=== PATIENT | male | born 1940 | race Caucasian/White ===

== ENCOUNTER 2016-03-21 09:33 | Outpatient (CLI) | payer MEDICARE, BC ==
[2016-03-21 09:50] LABS: #Basophils 0.1 thou/uL (0.0-0.2); #Eosinphils 0.3 thou/uL (0.0-0.7); #Lymphocytes 1.5 thou/uL (1.20-3.40); #Monocytes 1.3 thou/uL (0.11-0.59); #Neutrophils 5.5 thou/uL (1.40-6.50); %Basophils 1.2 % (0.0-1.0); %Eosinophils 3.2 % (0.0-10.0); %Lymphocytes 17.7 % (21.0-51.0); %Monocytes 14.6 % (0.0-10.0); %Neutrophils 63.3 % (42.0-75.0); Mean Corpuscular Hemoglobin 28.8 pg (27.0-31.0); Mean Corpuscular Volume 87.4 fl (80.0-94.0); Mean Platelet Volume 6.6 fL (7.4-10.4); Platelet Count 139 thou/uL (130-400); RBC Distribution Width 13.9 % (11.5-14.5); Red Blood Cell (RBC) Count 5.19 mill/uL (4.70-6.10); White Blood Cell (WBC) Count 8.7 thou/uL (4.8-10.8)
== END 2016-03-21 09:34 | disposition home or self-care (01) ==
LOC: MADLABBHPM 09:33
PROVIDERS: ATTEND Family Medicine
DX: Z13.9 Encounter for screening, unspecified (principal)
CPT/HCPCS: 36415; 82728; 83540; 85025

== ENCOUNTER 2016-06-28 08:02 | Outpatient (CLI) | payer MEDICARE, BC ==
[2016-06-28 08:35] LABS: Hemoglobin A1c 5.5 % (4.0-6.0)
[2016-06-28 08:46] LABS: ALT (SGPT) 20 U/L (8-55); AST (SGOT) 20 U/L (5-34); Albumin 4.2 g/dL (3.4-4.8); Alkaline Phosphatase 84 U/L (40-150); Anion Gap 13 mmol/L (10-20); BUN (Urea Nitrogen) 15 mg/dL (8.4-25.7); Bilirubin, Total 1.3 mg/dL (0.2-1.2); Calc. Creatinine Clearance 0 mL/min (70-130); Calcium 8.9 mg/dL (7.8-10.44); Carbon Dioxide 25 mmol/L (23-31); Cardiac Risk 6.7 (Less than 4.5); Chloride 105 mmol/L (98-107); Cholesterol 175 mg/dl (< 200 Desired); Estimated GFR-MDRD 58; Globulin 2.6 g/dL (2.4-3.5); Glucose 128 mg/dL (83-110); HDL Cholesterol 26 mg/dL (>60 Neg Risk); LDL Cholesterol, Calculated 97 mg/dL; Potassium 4.1 mmol/L (3.5-5.1); Protein, Total 6.8 g/dL (5.8-8.1); Sodium 139 mmol/L (136-145); Triglycerides 259 mg/dL (Less than 150)
[2016-06-28 10:01] LABS: Band 1 % (5-11); Eosinophils 3 % (0-10); Hemoglobin 15.1 g/dL (14.0-18.0); Lymphocytes 14 % (21-51); MDiff Complete? YES; Mean Corpuscular HGB CONC 33.6 g/dL (32.0-36.0); Mean Corpuscular Hemoglobin 29.2 pg (27.0-31.0); Mean Corpuscular Volume 86.9 fl (80.0-94.0); Mean Platelet Volume 5.8 fL (7.4-10.4); Monocytes 12 % (0-10); Neutrophil 70 % (42-75); PLT Morphology Comment Appears Decreased; Platelet Count 129 thou/uL (130-400); RBC Distribution Width 13.8 % (11.5-14.5); RBC Morphology Normal; Red Blood Cell (RBC) Count 5.17 mill/uL (4.70-6.10); White Blood Cell (WBC) Count 7.4 thou/uL (4.8-10.8)
== END 2016-06-28 08:03 ==
LOC: MADLABBHPM 08:02
PROVIDERS: ATTEND Family Medicine
DX: D69.6 Thrombocytopenia, unspecified (principal); R73.03 Prediabetes
CPT/HCPCS: 36415; 80053; 80061; 83036; 85025

== ENCOUNTER 2016-09-27 07:14 | Outpatient (CLI) | payer MEDICARE, BC ==
[2016-09-27 07:51] LABS: ALT (SGPT) 20 U/L (8-55); AST (SGOT) 17 U/L (5-34); Albumin 4.2 g/dL (3.4-4.8); Alkaline Phosphatase 79 U/L (40-150); Anion Gap 13 mmol/L (10-20); BUN (Urea Nitrogen) 19 mg/dL (8.4-25.7); Bilirubin, Total 0.7 mg/dL (0.2-1.2); Calc. Creatinine Clearance 0 mL/min (70-130); Calcium 8.9 mg/dL (7.8-10.44); Carbon Dioxide 25 mmol/L (23-31); Cardiac Risk 7.1 (Less than 4.5); Chloride 105 mmol/L (98-107); Cholesterol 184 mg/dl (< 200 Desired); Estimated GFR-MDRD 53; Globulin 2.9 g/dL (2.4-3.5); Glucose 130 mg/dL (83-110); HDL Cholesterol 26 mg/dL (>60 Neg Risk); LDL Cholesterol, Calculated 99 mg/dL; Potassium 4.1 mmol/L (3.5-5.1); Protein, Total 7.1 g/dL (5.8-8.1); Sodium 139 mmol/L (136-145); Triglycerides 295 mg/dL (Less than 150)
[2016-09-27 08:23] LABS: #Basophils 0.1 thou/uL (0.0-0.2); #Eosinphils 0.2 thou/uL (0.0-0.7); #Lymphocytes 1.4 thou/uL (1.20-3.40); #Monocytes 0.9 thou/uL (0.11-0.59); #Neutrophils 4.5 thou/uL (1.40-6.50); %Basophils 0.9 % (0.0-1.0); %Eosinophils 2.5 % (0.0-10.0); %Lymphocytes 19.5 % (21.0-51.0); %Monocytes 12.2 % (0.0-10.0); Hemoglobin 14.3 g/dL (14.0-18.0); Large Platelets SLIGHT; MDiff Complete? YES; Mean Corpuscular HGB CONC 32.3 g/dL (32.0-36.0); Mean Corpuscular Hemoglobin 28.6 pg (27.0-31.0); Mean Corpuscular Volume 88.4 fl (80.0-94.0); Mean Platelet Volume 7.1 fL (7.4-10.4); PLT Morphology Comment Appears Decreased; Platelet Count 120 thou/uL (130-400); RBC Distribution Width 14.8 % (11.5-14.5); Red Blood Cell (RBC) Count 4.99 mill/uL (4.70-6.10)
== END 2016-09-27 07:15 | disposition home or self-care (01) ==
LOC: MADLABBHPM 07:14
PROVIDERS: ATTEND Family Medicine
DX: D64.9 Anemia, unspecified (principal); I10 Essential (primary) hypertension
CPT/HCPCS: 36415; 80053; 80061; 85025

== ENCOUNTER 2016-09-30 10:54 | Outpatient (CLI) | payer MEDICARE, BC ==
[2016-09-30 12:16] LABS: Prothrombin Time 13.2 SEC (12.0-14.7)
[2016-09-30 12:17] LABS: PTT 28.5 SEC (22.9-36.1)
[2016-09-30 12:23] LABS: Clarity Clear (Clear)
[2016-09-30 12:24] LABS: Bilirubin Negative (Negative); Blood, Urine Small (Negative); Glucose, Urine (Dipstick) Negative (Negative); Leukocyte Negative (Negative); Nitrite Negative (Negative); Protein, Urine (Dipstick) 30 mg/dL (Neg-Trace); Urobilinogen 0.2 mg/dL (0.2-1.0)
[2016-09-30 12:27] LABS: Bacteria/HPF Rare-Few HPF (None Seen); RBC/HPF 0-3 HPF (0-3); Squamous Epithelial 0-3 HPF (0-3); WBC/HPF 0-3 HPF (0-3)
--- NOTE | 2016-09-30 16:30 | RAD ---
PA AND LATERAL CHEST X-RAY 09/30/2016 HISTORY: Preoperative evaluation. COMPARISON: 02/28/2012 FINDINGS: The cardiac silhouette and pulmonary vasculature are within normal limits. The lungs remain clear. There are vascular calcifications in the thoracic aorta. There are degenerative changes in the spi ne. There has been no interval change from the prior study. IMPRESSION: No acute cardiopulmonary process. POS: [facility]
== END 2016-09-30 10:55 | disposition home or self-care (01) ==
LOC: MADLABBHPM 10:54
PROVIDERS: ATTEND Family Medicine
DX: Z01.818 Encounter for other preprocedural examination (principal)
CPT/HCPCS: 36415; 71020; 81001; 85610; 85730; 87086

== ENCOUNTER 2017-01-28 22:14 | Emergency (ER) | payer MEDICARE, BC, OTHER ==
[2017-01-28] MEDS ORDERED: HYDROcodone/Acetaminophen 5/325 mg Tablet ONE (23:09)
[2017-01-28] MEDS ORDERED: Amoxicillin/Potassium Clav 875 MG TAB ONE (23:10)
[2017-01-28] MEDS ORDERED: Benzonatate 100 MG CAP ONE (23:10)
[2017-01-28] MEDS ORDERED: Dexamethasone 4 MG TAB ONE (23:10)
--- NOTE | 2017-01-28 23:23 | RAD ---
TWO VIEWS CHEST: 01/28/17 PROVIDED CLINICAL HISTORY: Cough. FINDINGS: Comparison 09/30/16. Cardiac and mediastinal silhouette is within normal limits. No focal consolidation, pleural fluid or pneumothorax apparent. IMPRESSION: No evidence for an acute cardiopulmonary process. POS: [facility]
== END 2017-01-28 23:30 | disposition home or self-care (01) ==
LOC: MADERS 22:14
DX: J40 Bronchitis, not specified as acute or chronic (principal); I10 Essential (primary) hypertension; F17.210 Nicotine dependence, cigarettes, uncomplicated; Z79.891 Long term (current) use of opiate analgesic; Z79.82 Long term (current) use of aspirin; Z79.899 Other long term (current) drug therapy
CPT/HCPCS: 71020; J8540

== ENCOUNTER 2017-10-07 08:48 | Outpatient (CLI) | payer MEDICARE, BC, OTHER ==
--- NOTE | 2017-10-07 10:52 | ULT ---
ULTRASOUND ABDOMEN: Date: 10/07/17 HISTORY: Abdominal pain. COMPARISON: None. FINDINGS: Real-time Shukla scale and color evaluation of the abdomen performed. Visualized portions of the aorta and IVC are unremarkable. Visualized portions of pancreas unremarkable. Hepatic echotexture appears m ildly increased. Common bile duct measures 2.0 mm and is normal. The right kidney measures 10.8 x 4.5 x 5.0 cm, without mass, hydronephrosis, or abnormal calcificatio ns. The left kidney measures 10.0 x 5.0 x 4.6 cm, without mass, hydronephrosis, or abnormal calcification s. Spleen measures 11.9 cm in length. No gallbladder is evaluated on this examination. IMPRESSION: 1. Unremarkable exam. 2. Prior cholecystectomy. POS: [facility]
== END 2017-10-07 08:49 | disposition home or self-care (01) ==
LOC: MADRAD 08:48
PROVIDERS: ATTEND Family Medicine
DX: Z87.891 Personal history of nicotine dependence (principal); Z90.49 Acquired absence of other specified parts of digestive tract
CPT/HCPCS: 76700

== ENCOUNTER 2018-08-29 08:23 | Emergency (ER) | payer MEDICARE, BC, OTHER ==
--- NOTE | 2018-08-29 09:00 | RAD ---
EXAM: 3 views of the right shoulder HISTORY: Shoulder pain COMPARISON: 12/01/2013 FINDINGS: There is no evidence of acute fracture or dislocation. No degenerative changes are present. No soft tissue swelling is seen. The visualized thorax is unremarkable. IMPRESSION: No evidence of acute osseous abnormality.
== END 2018-08-29 09:45 | disposition home or self-care (01) ==
LOC: MADERS 08:23
DX: S43.401A Unspecified sprain of right shoulder joint, initial encounter (principal); I10 Essential (primary) hypertension; F17.210 Nicotine dependence, cigarettes, uncomplicated; Z79.899 Other long term (current) drug therapy; X58.XXXA Exposure to other specified factors, initial encounter

== ENCOUNTER 2018-11-10 09:11 | Outpatient (CLI) | payer MEDICARE, BC, OTHER ==
[2018-11-10 09:48] LABS: #Basophils 0.1 thou/uL (0.0-0.2); #Eosinphils 0.1 thou/uL (0.0-0.7); #Lymphocytes 1.1 thou/uL (1.20-3.40); #Monocytes 0.9 thou/uL (0.11-0.59); #Neutrophils 3.7 thou/uL (1.40-6.50); %Basophils 1.9 % (0.0-1.0); %Eosinophils 1.9 % (0.0-10.0); %Monocytes 14.5 % (0.0-10.0); %Neutrophils 62.8 % (42.0-75.0); Hemoglobin 13.3 g/dL (14.0-18.0); Mean Corpuscular Hemoglobin 27.4 pg (27.0-31.0); Mean Corpuscular Volume 85.7 fL (78.0-98.0); Mean Platelet Volume 5.8 fL (7.4-10.4); Platelet Count 151 thou/uL (130-400); RBC Distribution Width 14.5 % (11.5-14.5); Red Blood Cell (RBC) Count 4.86 mill/uL (4.70-6.10); White Blood Cell (WBC) Count 5.9 thou/uL (4.8-10.8)
[2018-11-10 10:50] LABS: Bilirubin Negative (Negative); Blood, Urine Large (Negative); Glucose, Urine (Dipstick) Negative (Negative); Leukocyte Negative (Negative); Nitrite Negative (Negative); Protein, Urine (Dipstick) 100 mg/dL (Neg-Trace); Urobilinogen 0.2 mg/dL (Less than 2)
[2018-11-10 10:51] LABS: Clarity Hazy (Clear); RBC/HPF Greater than 50 HPF (0-3)
[2018-11-10 10:52] LABS: Bacteria/HPF Rare-Few HPF (None Seen); Squamous Epithelial 0-3 HPF (0-3); WBC/HPF 0-3 HPF (0-3)
[2018-11-10 11:00] LABS: ALT (SGPT) 42 U/L (8-55); AST (SGOT) 26 U/L (5-34); Albumin 4.2 g/dL (3.4-4.8); Alkaline Phosphatase 86 U/L (40-110); Anion Gap 16 mmol/L (10-20); BUN (Urea Nitrogen) 23 mg/dL (8.4-25.7); Bilirubin, Total 0.7 mg/dL (0.2-1.2); Calc. Creatinine Clearance 0 mL/min (70-130); Calcium 8.9 mg/dL (7.8-10.44); Carbon Dioxide 26 mmol/L (23-31); Chloride 106 mmol/L (98-107); Estimated GFR-MDRD 53; Globulin 2.9 g/dL (2.4-3.5); Glucose 92 mg/dL (83-110); Potassium 4.5 mmol/L (3.5-5.1); Protein, Total 7.1 g/dL (5.8-8.1); Sodium 143 mmol/L (136-145)
== END 2018-11-10 09:12 | disposition home or self-care (01) ==
LOC: MADLABBHPM 09:11
PROVIDERS: ATTEND Family Medicine
DX: D64.9 Anemia, unspecified (principal); R19.7 Diarrhea, unspecified; R35.0 Frequency of micturition
CPT/HCPCS: 36415; 80053; 81001; 85025; 87086

== ENCOUNTER 2019-10-25 05:46 | Emergency (ER) | payer MEDICARE, BC, OTHER ==
[2019-10-25 06:08] LABS: Bilirubin Negative (Negative); Blood, Urine Large (Negative); Clarity Slightly Cloudy (Clear); Glucose, Urine (Dipstick) Negative (Negative); Ketone, Urine Negative (Negative); Leukocyte Negative (Negative); Nitrite Negative (Negative); Protein, Urine (Dipstick) 100 mg/dL (Neg-Trace); Urobilinogen 0.2 mg/dL (Less than 2); pH, Urine 5.5 (5.0-9.0)
[2019-10-25 06:11] LABS: RBC/HPF Greater than 50 HPF (0-3); Squamous Epithelial 0-3 HPF (0-3); WBC/HPF 0-3 HPF (0-3)
[2019-10-25 06:12] LABS: Bacteria/HPF Rare-Few HPF (None Seen)
[2019-10-25] MEDS ORDERED: Sodium Chloride 0.9% 1,000 ML ONE (06:19)
[2019-10-25] MEDS ORDERED: Ondansetron PF 4 MG/2 ML Vial ONE (06:20)
[2019-10-25] MEDS ORDERED: Ketorolac Tromethamine 30 MG/ML VIAL ONE ×2 (06:20→06:56)
[2019-10-25] MEDS ORDERED: Tamsulosin HCl 0.4 MG CAP ONE (06:22)
[2019-10-25 06:31] LABS: #Eosinphils 0.1 thou/uL (0.0-0.7); #Lymphocytes 1.2 thou/uL (1.20-3.40); #Monocytes 0.8 thou/uL (0.11-0.59); #Neutrophils 5.6 thou/uL (1.40-6.50); %Basophils 0.5 % (0.0-1.0); %Eosinophils 1.2 % (0.0-10.0); %Lymphocytes 14.9 % (21.0-51.0); %Monocytes 10.7 % (0.0-10.0); %Neutrophils 72.8 % (42.0-75.0); Hemoglobin 14.5 g/dL (14.0-18.0); Mean Corpuscular HGB CONC 32.6 g/dL (32.0-36.0); Mean Corpuscular Hemoglobin 28.1 pg (27.0-31.0); Mean Corpuscular Volume 86.2 fL (78.0-98.0); Mean Platelet Volume 6.6 fL (7.4-10.4); Platelet Count 160 thou/uL (130-400); Red Blood Cell (RBC) Count 5.15 mill/uL (4.70-6.10); White Blood Cell (WBC) Count 7.7 thou/uL (4.8-10.8)
[2019-10-25 06:38] LABS: ALT (SGPT) 10 U/L (8-55); AST (SGOT) 13 U/L (5-34); Albumin 4.5 g/dL (3.4-4.8); Alkaline Phosphatase 74 U/L (40-110); Anion Gap 14 mmol/L (10-20); BUN (Urea Nitrogen) 19 mg/dL (8.4-25.7); Bilirubin, Total 0.8 mg/dL (0.2-1.2); Calc. Creatinine Clearance 0 mL/min (70-130); Calcium 8.6 mg/dL (7.8-10.44); Carbon Dioxide 20 mmol/L (23-31); Chloride 109 mmol/L (98-107); Estimated GFR-MDRD 52; Globulin 2.8 g/dL (2.4-3.5); Glucose 160 mg/dL (83-110); Potassium 3.8 mmol/L (3.5-5.1); Protein, Total 7.3 g/dL (5.8-8.1); Sodium 139 mmol/L (136-145)
--- NOTE | 2019-10-25 07:54 | CT ---
CT OF THE ABDOMEN AND PELVIS WITHOUT CONTRAST: INDICATION: Left flank pain with concern for possible stone. COMPARISON: Prior CT stone protocol dated 11/13/2018 and CTA aortic dissection protocol dated 12/22/2014. FINDINGS: There is mild subsegmental atelectasis in the left lower lobe. Unopacified liver, pancreas, and adrenal glands appear within normal limits. The gallbladder is surg ically absent. The spleen is normal-appearing. There are bilateral cysts that have been stable since the prior examinations. The largest measures 1 .8 cm superior pole left kidney. There is an exophytic slightly hyperdense lesion off the posterior margin of the left mid kidney measuring 1.4 cm that was demonstrated as being a cyst on the prior exa minations. This was also seen on a chest, abdomen, and pelvis CT dated 09/17/2013. The lesion appears slightly more hyperdense on today's examination possibly related to increased proteinaceous debris. There is a 1 cm cyst involving the inferior pole of the right kidney which is stable. There is a 3.4 mm stone at the right UPJ without hydronephrosis. There is a 1-2 mm stone involving t he superior stone involving the superior pole of the left kidney. N definite left ureteral calculus is evident. The bladder is partially decompressed. The prostate is mildly enlarged. There is a mild amount of retained stool in the colon. The appendix is not definite seen. The small bowel is normal appearing. There are moderate calcifications involving the abdominopelvic vasculature. No definite acute osseous abnormality is evident. There is scattered degenerative and osteoarthritic change. IMPRESSION: 1. A 3.4 mm right ureteropelvic junction stone without hydronephrosis. 2. Left nephrolithiasis. 3. No hydronephrosis. 4. Bilateral renal cysts. 5. Other chronic findings as above. POS: [facility]
[2019-10-25] MEDS ORDERED: Morphine 4 MG/ML VIAL ONE (07:56)
== END 2019-10-25 08:35 | disposition home or self-care (01) ==
LOC: MADERS 05:46
DX: N20.2 Calculus of kidney with calculus of ureter (principal); I10 Essential (primary) hypertension; F17.210 Nicotine dependence, cigarettes, uncomplicated; Z87.442 Personal history of urinary calculi; Z79.899 Other long term (current) drug therapy
CPT/HCPCS: 74176; 80053; 81003; 81015; 85025; 96361; 96374; 96375; J1885; J2270; J2405; J7050

== ENCOUNTER 2020-08-07 09:48 | Emergency (ER) | payer MEDICARE, BC, OTHER ==
[2020-08-07 10:39] LABS: Hemoglobin 13.9 g/dL (14.0-18.0); Lymphocytes 13 % (21-51); MDiff Complete? YES; Mean Corpuscular HGB CONC 31.8 g/dL (32.0-36.0); Mean Corpuscular Hemoglobin 28.7 pg (27.0-31.0); Mean Corpuscular Volume 90.1 fL (78.0-98.0); Mean Platelet Volume 7.9 fL (7.4-10.4); Monocytes 8 % (0-10); Neutrophil 79 % (42-75); Platelet Count 153 thou/uL (130-400); Platelet Morphology Comment Appears Adequate; RBC Distribution Width 14.3 % (11.5-14.5); RBC Morphology Normal; Red Blood Cell (RBC) Count 4.85 mill/uL (4.70-6.10); White Blood Cell (WBC) Count 8.3 thou/uL (4.8-10.8)
[2020-08-07 10:49] LABS: ALT (SGPT) 9 U/L (8-55); AST (SGOT) 15 U/L (5-34); Albumin 4.4 g/dL (3.4-4.8); Alkaline Phosphatase 84 U/L (40-110); Anion Gap 13 mmol/L (10-20); BUN (Urea Nitrogen) 24 mg/dL (8.4-25.7); Bilirubin, Total 0.8 mg/dL (0.2-1.2); Calc. Creatinine Clearance 0 mL/min (70-130); Calcium 9.1 mg/dL (7.8-10.44); Carbon Dioxide 23 mmol/L (23-31); Chloride 108 mmol/L (98-107); Globulin 2.8 g/dL (2.4-3.5); Glucose 109 mg/dL (83-110); Potassium 4.8 mmol/L (3.5-5.1); Protein, Total 7.2 g/dL (5.8-8.1); Sodium 139 mmol/L (136-145)
[2020-08-07 11:14] LABS: Bilirubin Negative (Negative); Blood, Urine Trace (Negative); Clarity Clear (Clear); Glucose, Urine (Dipstick) Negative (Negative); Ketone, Urine Negative (Negative); Leukocyte Negative (Negative); Nitrite Negative (Negative); Protein, Urine (Dipstick) Negative (Neg-Trace); Urobilinogen 0.2 mg/dL (Less than 2); pH, Urine 5.5 (5.0-9.0)
[2020-08-07 11:15] LABS: Bacteria/HPF Rare-Few HPF (None Seen); RBC/HPF 0-3 HPF (0-3); Squamous Epithelial 0-3 HPF (0-3); WBC/HPF 0-3 HPF (0-3)
== END 2020-08-07 11:40 | disposition home or self-care (01) ==
LOC: MADERS 09:48
DX: I10 Essential (primary) hypertension (principal); R42 Dizziness and giddiness; R00.0 Tachycardia, unspecified; F17.210 Nicotine dependence, cigarettes, uncomplicated; Z87.442 Personal history of urinary calculi; Z79.899 Other long term (current) drug therapy; Z79.82 Long term (current) use of aspirin
CPT/HCPCS: 36415; 80053; 81015; 84484; 85025; 93005

== ENCOUNTER 2020-08-25 13:40 | Inpatient (IN) | payer MEDICARE, BC, OTHER ==
[2020-08-25] MEDS ORDERED: HYDROcodone/Acetaminophen 5/325 mg Tablet PO PRN (18:19)
[2020-08-25] MEDS: Aspirin 81 mg Enteric Coated Tablet PO SCH (20:31)
[2020-08-25] MEDS: hydrALAZINE 10 MG TAB PO SCH (20:32)
[2020-08-25] MEDS: Losartan Potassium 50 MG TAB PO SCH (20:32)
[2020-08-25] MEDS: METHAZOLAMIDE 50 MG PO SCH (20:33)
[2020-08-25] MEDS: HYDROcodone/Acetaminophen 5/325 mg Tablet PO PRN (20:39)
[2020-08-25] MEDS: SODIUM CHLORIDE 5% EA EYE SCH (20:39)
[2020-08-25] MEDS: [UNRECOGNIZED DRUG - OTHER] EA EYE SCH (20:39)
[2020-08-25] MEDS: POTASSIUM CITRATE 15 MEQ PO SCH (20:48)
[2020-08-25] MEDS ORDERED: METHAZOLAMIDE 50 MG PO SCH (21:00)
[2020-08-25] MEDS ORDERED: [UNRECOGNIZED DRUG - OTHER] EA EYE SCH (21:00)
[2020-08-25] MEDS ORDERED: SODIUM CHLORIDE 5% EA EYE SCH (21:00)
[2020-08-26] MEDS: Enoxaparin Sodium 40 MG/0.4 ML SYRINGE SC SCH (08:12)
[2020-08-26] MEDS: Aspirin 81 mg Enteric Coated Tablet PO SCH ×2 (08:12→20:50)
[2020-08-26] MEDS: METHAZOLAMIDE 50 MG PO SCH ×2 (08:12→20:52)
[2020-08-26] MEDS: hydrALAZINE 10 MG TAB PO SCH ×2 (08:12→20:51)
[2020-08-26] MEDS: Atenolol 25 MG TAB PO SCH (08:12)
[2020-08-26] MEDS: [UNRECOGNIZED DRUG - OTHER] EA EYE SCH ×3 (08:13→21:02)
[2020-08-26] MEDS: SODIUM CHLORIDE 5% EA EYE SCH ×3 (08:13→21:02)
[2020-08-26] MEDS: POTASSIUM CITRATE 15 MEQ PO SCH ×2 (08:13→21:01)
[2020-08-26] MEDS: Polyethylene Glycol 3350 17 GM Packet PER TUBE SCH (08:14)
[2020-08-26] MEDS: HYDROcodone/Acetaminophen 5/325 mg Tablet PO PRN ×3 (08:16→20:55)
[2020-08-26] MEDS: Losartan Potassium 50 MG TAB PO SCH (20:51)
[2020-08-27] MEDS: HYDROcodone/Acetaminophen 5/325 mg Tablet PO PRN ×4 (05:09→21:08)
[2020-08-27] MEDS: Acetaminophen 325 MG TAB PO PRN (08:08)
[2020-08-27] MEDS: Atenolol 25 MG TAB PO SCH (08:09)
[2020-08-27] MEDS: Polyethylene Glycol 3350 17 GM Packet PER TUBE SCH (08:09)
[2020-08-27] MEDS: Enoxaparin Sodium 40 MG/0.4 ML SYRINGE SC SCH (08:09)
[2020-08-27] MEDS: Aspirin 81 mg Enteric Coated Tablet PO SCH ×2 (08:09→21:07)
[2020-08-27] MEDS: hydrALAZINE 10 MG TAB PO SCH ×2 (08:09→21:08)
[2020-08-27] MEDS: POTASSIUM CITRATE 15 MEQ PO SCH ×2 (08:10→21:12)
[2020-08-27] MEDS: [UNRECOGNIZED DRUG - OTHER] EA EYE SCH ×3 (08:10→21:13)
[2020-08-27] MEDS: METHAZOLAMIDE 50 MG PO SCH ×2 (08:10→21:10)
[2020-08-27] MEDS: SODIUM CHLORIDE 5% EA EYE SCH ×3 (08:10→21:13)
[2020-08-27] MEDS: Losartan Potassium 50 MG TAB PO SCH (21:08)
[2020-08-28] MEDS: HYDROcodone/Acetaminophen 5/325 mg Tablet PO PRN ×5 (05:18→23:16)
[2020-08-28 05:20] LABS: Hemoglobin 7.8 g/dL (14.0-18.0); Mean Corpuscular HGB CONC 33.9 g/dL (32.0-36.0); Mean Corpuscular Hemoglobin 29.7 pg (27.0-31.0); Mean Corpuscular Volume 87.5 fL (78.0-98.0); Mean Platelet Volume 6.4 fL (7.4-10.4); Platelet Count 195 thou/uL (130-400); RBC Distribution Width 14.3 % (11.5-14.5); Red Blood Cell (RBC) Count 2.63 mill/uL (4.70-6.10); White Blood Cell (WBC) Count 10.3 thou/uL (4.8-10.8)
[2020-08-28 05:37] LABS: Anion Gap 13 mmol/L (10-20); BUN (Urea Nitrogen) 21 mg/dL (8.4-25.7); Calc. Creatinine Clearance 64 mL/min (70-130); Calcium 8.9 mg/dL (7.8-10.44); Carbon Dioxide 22 mmol/L (23-31); Chloride 106 mmol/L (98-107); Glucose 147 mg/dL (83-110); Potassium 4.5 mmol/L (3.5-5.1); Sodium 136 mmol/L (136-145)
[2020-08-28] MEDS: hydrALAZINE 10 MG TAB PO SCH ×2 (08:19→20:20)
[2020-08-28] MEDS: Aspirin 81 mg Enteric Coated Tablet PO SCH ×2 (08:19→20:18)
[2020-08-28] MEDS: Enoxaparin Sodium 40 MG/0.4 ML SYRINGE SC SCH (08:19)
[2020-08-28] MEDS: Polyethylene Glycol 3350 17 GM Packet PER TUBE SCH (08:19)
[2020-08-28] MEDS: Atenolol 25 MG TAB PO SCH (08:19)
[2020-08-28] MEDS: POTASSIUM CITRATE 15 MEQ PO SCH ×2 (08:22→16:40)
[2020-08-28] MEDS: METHAZOLAMIDE 50 MG PO SCH ×2 (08:22→20:21)
[2020-08-28] MEDS: [UNRECOGNIZED DRUG - OTHER] EA EYE SCH ×3 (08:23→20:20)
[2020-08-28] MEDS: SODIUM CHLORIDE 5% EA EYE SCH ×3 (08:23→20:20)
[2020-08-28] MEDS ORDERED: Naproxen 500 MG TAB PO SCH (13:30)
[2020-08-28] MEDS: Naproxen 500 MG TAB PO SCH (20:18)
[2020-08-28] MEDS: Losartan Potassium 50 MG TAB PO SCH (20:18)
[2020-08-29] MEDS: HYDROcodone/Acetaminophen 5/325 mg Tablet PO PRN ×3 (05:12→18:17)
[2020-08-29] MEDS: [UNRECOGNIZED DRUG - OTHER] EA EYE SCH (08:19)
[2020-08-29] MEDS: SODIUM CHLORIDE 5% EA EYE SCH (08:19)
[2020-08-29] MEDS: POTASSIUM CITRATE 15 MEQ PO SCH ×2 (08:19→17:21)
[2020-08-29] MEDS: Aspirin 81 mg Enteric Coated Tablet PO SCH ×2 (08:20→20:22)
[2020-08-29] MEDS: METHAZOLAMIDE 50 MG PO SCH ×2 (08:20→20:22)
[2020-08-29] MEDS: hydrALAZINE 10 MG TAB PO SCH ×2 (08:20→20:22)
[2020-08-29] MEDS: Ferrous Sulfate 325 MG TAB PO SCH (08:21)
[2020-08-29] MEDS: Naproxen 500 MG TAB PO SCH ×2 (08:21→20:20)
[2020-08-29] MEDS: Atenolol 25 MG TAB PO SCH (08:21)
[2020-08-29] MEDS: Polyethylene Glycol 3350 17 GM Packet PER TUBE SCH (08:23)
[2020-08-29] MEDS: Enoxaparin Sodium 40 MG/0.4 ML SYRINGE SC SCH (08:23)
[2020-08-29] MEDS ORDERED: MURO EA EYE SCH (15:00)
[2020-08-29] MEDS ORDERED: OPTH EA EYE SCH (15:00)
[2020-08-29] MEDS: Losartan Potassium 50 MG TAB PO SCH (20:21)
[2020-08-29] MEDS ORDERED: SODIUM CHLORIDE 5% EA EYE SCH ×2 (21:00)
[2020-08-29] MEDS ORDERED: [UNRECOGNIZED DRUG - OTHER] EA EYE SCH ×2 (21:00)
[2020-08-30] MEDS: HYDROcodone/Acetaminophen 5/325 mg Tablet PO PRN ×2 (05:00→13:35)
[2020-08-30] MEDS: POTASSIUM CITRATE 15 MEQ PO SCH ×2 (08:05→17:03)
[2020-08-30] MEDS: Enoxaparin Sodium 40 MG/0.4 ML SYRINGE SC SCH (08:05)
[2020-08-30] MEDS: Aspirin 81 mg Enteric Coated Tablet PO SCH ×2 (08:06→21:19)
[2020-08-30] MEDS: Ferrous Sulfate 325 MG TAB PO SCH (08:06)
[2020-08-30] MEDS: Naproxen 500 MG TAB PO SCH ×2 (08:06→21:20)
[2020-08-30] MEDS: Atenolol 25 MG TAB PO SCH (08:07)
[2020-08-30] MEDS: hydrALAZINE 10 MG TAB PO SCH ×2 (08:07→21:19)
[2020-08-30] MEDS: METHAZOLAMIDE 50 MG PO SCH ×2 (08:07→21:22)
[2020-08-30] MEDS: OPTH EA EYE SCH ×5 (08:08→22:35)
[2020-08-30] MEDS: MURO EA EYE SCH ×5 (08:08→22:35)
[2020-08-30] MEDS: Polyethylene Glycol 3350 17 GM Packet PO SCH (08:08)
[2020-08-30] MEDS: SODIUM CHLORIDE 5% EA EYE SCH ×2 (21:20→21:36)
[2020-08-30] MEDS: [UNRECOGNIZED DRUG - OTHER] EA EYE SCH ×2 (21:20→21:36)
[2020-08-30] MEDS: Losartan Potassium 50 MG TAB PO SCH (21:20)
[2020-08-31] MEDS: HYDROcodone/Acetaminophen 5/325 mg Tablet PO PRN ×2 (07:14→13:13)
[2020-08-31] MEDS: Polyethylene Glycol 3350 17 GM Packet PO SCH (08:06)
[2020-08-31] MEDS: METHAZOLAMIDE 50 MG PO SCH ×2 (08:06→20:15)
[2020-08-31] MEDS: POTASSIUM CITRATE 15 MEQ PO SCH ×2 (08:06→17:09)
[2020-08-31] MEDS: Aspirin 81 mg Enteric Coated Tablet PO SCH ×2 (08:07→20:17)
[2020-08-31] MEDS: Naproxen 500 MG TAB PO SCH ×2 (08:07→20:16)
[2020-08-31] MEDS: Atenolol 25 MG TAB PO SCH (08:07)
[2020-08-31] MEDS: Ferrous Sulfate 325 MG TAB PO SCH (08:07)
[2020-08-31] MEDS: Enoxaparin Sodium 40 MG/0.4 ML SYRINGE SC SCH (08:07)
[2020-08-31] MEDS: hydrALAZINE 10 MG TAB PO SCH ×2 (08:08→20:16)
[2020-08-31] MEDS: MURO EA EYE SCH ×3 (08:09→17:09)
[2020-08-31] MEDS: OPTH EA EYE SCH ×3 (08:09→17:09)
[2020-08-31] MEDS: [UNRECOGNIZED DRUG - OTHER] EA EYE SCH (20:18)
[2020-08-31] MEDS: SODIUM CHLORIDE 5% EA EYE SCH (20:18)
[2020-08-31] MEDS: Losartan Potassium 50 MG TAB PO SCH (20:18)
[2020-09-01] MEDS: HYDROcodone/Acetaminophen 5/325 mg Tablet PO PRN ×2 (06:03→11:02)
[2020-09-01] MEDS: Ferrous Sulfate 325 MG TAB PO SCH (09:13)
[2020-09-01] MEDS: Polyethylene Glycol 3350 17 GM Packet PO SCH (09:13)
[2020-09-01] MEDS: Enoxaparin Sodium 40 MG/0.4 ML SYRINGE SC SCH (09:13)
[2020-09-01] MEDS: Naproxen 500 MG TAB PO SCH ×2 (09:13→20:11)
[2020-09-01] MEDS: Aspirin 81 mg Enteric Coated Tablet PO SCH ×2 (09:14→20:10)
[2020-09-01] MEDS: hydrALAZINE 10 MG TAB PO SCH ×2 (09:14→20:10)
[2020-09-01] MEDS: Atenolol 25 MG TAB PO SCH (09:15)
[2020-09-01] MEDS: POTASSIUM CITRATE 15 MEQ PO SCH ×2 (09:17→19:13)
[2020-09-01] MEDS: METHAZOLAMIDE 50 MG PO SCH ×2 (09:19→20:12)
[2020-09-01] MEDS: MURO EA EYE SCH ×3 (09:26→19:14)
[2020-09-01] MEDS: OPTH EA EYE SCH ×3 (09:26→19:14)
[2020-09-01] MEDS ORDERED: MURO EA EYE SCH (19:15)
[2020-09-01] MEDS ORDERED: POTASSIUM CITRATE 15 MEQ PO SCH (19:15)
[2020-09-01] MEDS ORDERED: OPTH EA EYE SCH (19:15)
[2020-09-01] MEDS: Losartan Potassium 50 MG TAB PO SCH (20:11)
[2020-09-01] MEDS: Acetaminophen 325 MG TAB PO PRN (20:12)
[2020-09-01] MEDS: SODIUM CHLORIDE 5% EA EYE SCH (21:30)
[2020-09-01] MEDS: [UNRECOGNIZED DRUG - OTHER] EA EYE SCH (21:30)
[2020-09-02] MEDS: Acetaminophen 325 MG TAB PO PRN ×2 (01:19→20:16)
[2020-09-02] MEDS: MURO EA EYE SCH ×3 (09:34→17:25)
[2020-09-02] MEDS: POTASSIUM CITRATE 15 MEQ PO SCH ×2 (09:34→17:25)
[2020-09-02] MEDS: OPTH EA EYE SCH ×3 (09:34→17:25)
[2020-09-02] MEDS: METHAZOLAMIDE 50 MG PO SCH ×2 (09:34→20:17)
[2020-09-02] MEDS: Polyethylene Glycol 3350 17 GM Packet PO SCH (09:35)
[2020-09-02] MEDS: Naproxen 500 MG TAB PO SCH ×2 (09:35→20:16)
[2020-09-02] MEDS: Enoxaparin Sodium 40 MG/0.4 ML SYRINGE SC SCH (09:35)
[2020-09-02] MEDS: Aspirin 81 mg Enteric Coated Tablet PO SCH ×2 (09:37→20:15)
[2020-09-02] MEDS: Ferrous Sulfate 325 MG TAB PO SCH (09:37)
[2020-09-02] MEDS: hydrALAZINE 10 MG TAB PO SCH ×2 (09:38→20:15)
[2020-09-02] MEDS: Atenolol 25 MG TAB PO SCH (09:40)
[2020-09-02] MEDS: HYDROcodone/Acetaminophen 5/325 mg Tablet PO PRN (17:21)
[2020-09-02] MEDS: Losartan Potassium 50 MG TAB PO SCH (20:15)
[2020-09-02] MEDS: [UNRECOGNIZED DRUG - OTHER] EA EYE SCH (20:18)
[2020-09-02] MEDS: SODIUM CHLORIDE 5% EA EYE SCH (20:18)
[2020-09-03] MEDS: Polyethylene Glycol 3350 17 GM Packet PO SCH (08:47)
[2020-09-03] MEDS: Enoxaparin Sodium 40 MG/0.4 ML SYRINGE SC SCH (08:47)
[2020-09-03] MEDS: hydrALAZINE 10 MG TAB PO SCH ×2 (08:47→20:45)
[2020-09-03] MEDS: Atenolol 25 MG TAB PO SCH (08:47)
[2020-09-03] MEDS: Ferrous Sulfate 325 MG TAB PO SCH (08:48)
[2020-09-03] MEDS: Naproxen 500 MG TAB PO SCH ×2 (08:48→20:46)
[2020-09-03] MEDS: Aspirin 81 mg Enteric Coated Tablet PO SCH ×2 (08:48→20:45)
[2020-09-03] MEDS: POTASSIUM CITRATE 15 MEQ PO SCH ×2 (08:50→17:20)
[2020-09-03] MEDS: OPTH EA EYE SCH ×3 (08:50→17:19)
[2020-09-03] MEDS: METHAZOLAMIDE 50 MG PO SCH ×2 (08:50→20:49)
[2020-09-03] MEDS: MURO EA EYE SCH ×3 (08:50→17:19)
[2020-09-03] MEDS: Losartan Potassium 50 MG TAB PO SCH (20:46)
[2020-09-03] MEDS: SODIUM CHLORIDE 5% EA EYE SCH (20:51)
[2020-09-03] MEDS: [UNRECOGNIZED DRUG - OTHER] EA EYE SCH (20:51)
[2020-09-04] MEDS: HYDROcodone/Acetaminophen 5/325 mg Tablet PO PRN ×2 (07:08→12:55)
[2020-09-04] MEDS: METHAZOLAMIDE 50 MG PO SCH ×2 (08:17→21:03)
[2020-09-04] MEDS: POTASSIUM CITRATE 15 MEQ PO SCH ×2 (08:18→16:48)
[2020-09-04] MEDS: Polyethylene Glycol 3350 17 GM Packet PO SCH (08:18)
[2020-09-04] MEDS: MURO EA EYE SCH ×3 (08:18→16:48)
[2020-09-04] MEDS: OPTH EA EYE SCH ×3 (08:18→16:48)
[2020-09-04] MEDS: Aspirin 81 mg Enteric Coated Tablet PO SCH ×2 (08:19→20:58)
[2020-09-04] MEDS: hydrALAZINE 10 MG TAB PO SCH (08:19)
[2020-09-04] MEDS: Naproxen 500 MG TAB PO SCH ×2 (08:19→20:58)
[2020-09-04] MEDS: Atenolol 25 MG TAB PO SCH (08:19)
[2020-09-04] MEDS: Enoxaparin Sodium 40 MG/0.4 ML SYRINGE SC SCH (08:20)
[2020-09-04] MEDS: Ferrous Sulfate 325 MG TAB PO SCH (08:20)
[2020-09-04 10:33] VITALS: BMI 27.4
[2020-09-04] MEDS: Losartan Potassium 50 MG TAB PO SCH (20:58)
[2020-09-05] MEDS: HYDROcodone/Acetaminophen 5/325 mg Tablet PO PRN ×2 (06:51→13:41)
[2020-09-05] MEDS: POTASSIUM CITRATE 15 MEQ PO SCH ×2 (07:58→17:21)
[2020-09-05] MEDS: MURO EA EYE SCH (07:58)
[2020-09-05] MEDS: METHAZOLAMIDE 50 MG PO SCH ×2 (07:58→19:59)
[2020-09-05] MEDS: OPTH EA EYE SCH ×2 (07:58→19:59)
[2020-09-05] MEDS: Aspirin 81 mg Enteric Coated Tablet PO SCH ×2 (08:05→20:00)
[2020-09-05] MEDS: Naproxen 500 MG TAB PO SCH ×2 (08:05→20:00)
[2020-09-05] MEDS: Ferrous Sulfate 325 MG TAB PO SCH (08:06)
[2020-09-05] MEDS: Atenolol 25 MG TAB PO SCH (08:06)
[2020-09-05] MEDS: Enoxaparin Sodium 40 MG/0.4 ML SYRINGE SC SCH (08:09)
[2020-09-05] MEDS: Polyethylene Glycol 3350 17 GM Packet PO SCH (09:32)
[2020-09-05] MEDS: Sodium Chloride 5% Opth 15 ML BOT EA EYE SCH ×2 (13:39→17:25)
[2020-09-05] MEDS: SODIUM CHLORIDE 5% EA EYE SCH (19:59)
[2020-09-05] MEDS: Losartan Potassium 50 MG TAB PO SCH (20:00)
[2020-09-06] MEDS: HYDROcodone/Acetaminophen 5/325 mg Tablet PO PRN ×3 (00:46→20:17)
[2020-09-06] MEDS: Enoxaparin Sodium 40 MG/0.4 ML SYRINGE SC SCH (09:14)
[2020-09-06] MEDS: Atenolol 25 MG TAB PO SCH (09:16)
[2020-09-06] MEDS: Naproxen 500 MG TAB PO SCH ×2 (09:17→20:17)
[2020-09-06] MEDS: Aspirin 81 mg Enteric Coated Tablet PO SCH ×2 (09:17→20:18)
[2020-09-06] MEDS: POTASSIUM CITRATE 15 MEQ PO SCH ×2 (09:18→17:25)
[2020-09-06] MEDS: Ferrous Sulfate 325 MG TAB PO SCH (09:18)
[2020-09-06] MEDS: METHAZOLAMIDE 50 MG PO SCH ×2 (09:19→20:14)
[2020-09-06] MEDS: Polyethylene Glycol 3350 17 GM Packet PO SCH (09:19)
[2020-09-06] MEDS: Sodium Chloride 5% Opth 15 ML BOT EA EYE SCH ×4 (09:20→17:26)
[2020-09-06] MEDS: SODIUM CHLORIDE 5% EA EYE SCH (20:15)
[2020-09-06] MEDS: OPTH EA EYE SCH (20:15)
[2020-09-06] MEDS: Losartan Potassium 50 MG TAB PO SCH (20:19)
[2020-09-07] MEDS: HYDROcodone/Acetaminophen 5/325 mg Tablet PO PRN (06:00)
[2020-09-07] MEDS: Enoxaparin Sodium 40 MG/0.4 ML SYRINGE SC SCH (09:00)
[2020-09-07] MEDS: Polyethylene Glycol 3350 17 GM Packet PO SCH (09:00)
[2020-09-07] MEDS: Ferrous Sulfate 325 MG TAB PO SCH (09:01)
[2020-09-07] MEDS: Naproxen 500 MG TAB PO SCH ×2 (09:02→20:22)
[2020-09-07] MEDS: Aspirin 81 mg Enteric Coated Tablet PO SCH ×2 (09:02→20:21)
[2020-09-07] MEDS: Atenolol 25 MG TAB PO SCH (09:03)
[2020-09-07] MEDS: POTASSIUM CITRATE 15 MEQ PO SCH ×2 (09:05→17:49)
[2020-09-07] MEDS: METHAZOLAMIDE 50 MG PO SCH ×2 (09:05→20:21)
[2020-09-07] MEDS: Sodium Chloride 5% Opth 15 ML BOT EA EYE SCH ×3 (09:05→17:49)
[2020-09-07] MEDS: SODIUM CHLORIDE 5% EA EYE SCH (20:21)
[2020-09-07] MEDS: OPTH EA EYE SCH (20:21)
[2020-09-08] MEDS: HYDROcodone/Acetaminophen 5/325 mg Tablet PO PRN ×3 (01:09→12:42)
[2020-09-08 05:35] LABS: Hemoglobin 9.2 g/dL (14.0-18.0); Mean Corpuscular Hemoglobin 28.7 pg (27.0-31.0); Mean Corpuscular Volume 92.7 fL (78.0-98.0); Mean Platelet Volume 5.1 fL (7.4-10.4); Platelet Count 333 thou/uL (130-400); RBC Distribution Width 17.3 % (11.5-14.5)
[2020-09-08] MEDS: Naproxen 500 MG TAB PO SCH (09:18)
[2020-09-08] MEDS: Ferrous Sulfate 325 MG TAB PO SCH (09:19)
[2020-09-08] MEDS: Aspirin 81 mg Enteric Coated Tablet PO SCH (09:19)
[2020-09-08] MEDS: Polyethylene Glycol 3350 17 GM Packet PO SCH (09:19)
[2020-09-08] MEDS: POTASSIUM CITRATE 15 MEQ PO SCH ×2 (09:24→16:52)
[2020-09-08] MEDS: METHAZOLAMIDE 50 MG PO SCH (09:24)
[2020-09-08] MEDS: Sodium Chloride 5% Opth 15 ML BOT EA EYE SCH ×3 (09:26→16:52)
[2020-09-08 19:14] VITALS: BP 138/65; TEMP 97.9
== END 2020-09-08 18:45 | disposition home or self-care (01) | DRG 560 ==
LOC: MADMS 14:15
PROVIDERS: ADMIT Family Medicine; ATTEND Family Medicine
DX: Z47.1 Aftercare following joint replacement surgery (principal); D62 Acute posthemorrhagic anemia; R53.81 Other malaise; Z66 Do not resuscitate; N99.89 Other postprocedural complications and disorders of genitourinary system; R33.8 Other retention of urine; R26.81 Unsteadiness on feet; E11.22 Type 2 diabetes mellitus with diabetic chronic kidney disease; I12.9 Hypertensive chronic kidney disease with stage 1 through stage 4 chronic kidney disease, or unspecified chronic kidney disease; E78.5 Hyperlipidemia, unspecified; N18.30 Chronic kidney disease, stage 3 unspecified; J44.9 Chronic obstructive pulmonary disease, unspecified; E11.40 Type 2 diabetes mellitus with diabetic neuropathy, unspecified; K21.9 Gastro-esophageal reflux disease without esophagitis; Z96.0 Presence of urogenital implants; R42 Dizziness and giddiness; I95.1 Orthostatic hypotension; Z98.49 Cataract extraction status, unspecified eye; Z88.5 Allergy status to narcotic agent; Z79.82 Long term (current) use of aspirin; Z79.899 Other long term (current) drug therapy; Z92.3 Personal history of irradiation; Z85.828 Personal history of other malignant neoplasm of skin; Z90.49 Acquired absence of other specified parts of digestive tract; Z98.890 Other specified postprocedural states; Z87.442 Personal history of urinary calculi; Z85.72 Personal history of non-Hodgkin lymphomas
CPT/HCPCS: 36415; 80048; 85027; J1650

== ENCOUNTER 2020-10-18 13:04 | Outpatient (CLI) | payer MEDICARE, BC, OTHER | END 2020-10-18 13:05 | disposition home or self-care (01) | LOC: MADRAD 13:04 | PROVIDERS: ATTEND Family Medicine | DX: M25.552 Pain in left hip (principal); M54.5 Low back pain; M48.8X7 Other specified spondylopathies, lumbosacral region | CPT/HCPCS: 72100 ==

== ENCOUNTER 2020-12-11 08:52 | Emergency (ER) | payer MEDICARE, BC, OTHER | END 2020-12-11 11:40 | disposition home or self-care (01) | LOC: MADERS 08:52 | DX: S93.402A Sprain of unspecified ligament of left ankle, initial encounter (principal); S80.02XA Contusion of left knee, initial encounter; S40.011A Contusion of right shoulder, initial encounter; I10 Essential (primary) hypertension; Z87.891 Personal history of nicotine dependence; W01.0XXA Fall on same level from slipping, tripping and stumbling without subsequent striking against object, initial encounter ==

== ENCOUNTER 2021-12-14 06:14 | Outpatient (CLI) | payer BC, OTHER ==
[2021-12-14 07:05] LABS: ALT (SGPT) Less than 7 U/L (8-55); AST (SGOT) 13 U/L (5-34); Albumin 4.5 g/dL (3.4-4.8); Alkaline Phosphatase 87 U/L (40-110); Bilirubin, Direct 0.3 mg/dL (0.1-0.3); Bilirubin, Total 0.7 mg/dL (0.2-1.2); Cardiac Risk 6.4 (Less than 4.5); Cholesterol 127 mg/dl (< 200 Desired); HDL Cholesterol 20 mg/dL (>60 Neg Risk); LDL Cholesterol, Calculated 79 mg/dL; Protein, Total 7.6 g/dL (5.8-8.1); Triglycerides 138 mg/dL (Less than 150)
== END 2021-12-14 06:15 | disposition home or self-care (01) ==
LOC: MADLAB 06:14
PROVIDERS: ATTEND Internal Medicine Cardiovascular Disease
DX: R60.9 Edema, unspecified (principal)
CPT/HCPCS: 36415; 80061; 80076; 83880

== ENCOUNTER 2022-04-10 12:25 | Outpatient (CLI) | payer MEDICARE, BC, OTHER ==
[2022-04-10 13:22] LABS: ALT (SGPT) 10 U/L (8-55); AST (SGOT) 17 U/L (5-34); Albumin 4.8 g/dL (3.4-4.8); Alkaline Phosphatase 85 U/L (40-110); Anion Gap 13 mmol/L (10-20); BUN (Urea Nitrogen) 26 mg/dL (8.4-25.7); Bilirubin, Total 1.3 mg/dL (0.2-1.2); Calc. Creatinine Clearance 0 mL/min (70-130); Calcium 9.5 mg/dL (7.8-10.44); Carbon Dioxide 25 mmol/L (23-31); Chloride 106 mmol/L (98-107); Estimated GFR 42; Globulin 3.1 g/dL (2.4-3.5); Glucose 119 mg/dL (83-110); Potassium 4.3 mmol/L (3.5-5.1); Protein, Total 7.9 g/dL (5.8-8.1); Sodium 140 mmol/L (136-145)
[2022-04-10 13:28] LABS: Troponin I Less than 0.010 ng/mL (< 0.028)
[2022-04-10 13:37] LABS: CKMB 2.9 ng/mL (0-6.6)
== END 2022-04-10 12:26 | disposition home or self-care (01) ==
LOC: MADLAB 12:25
PROVIDERS: ATTEND Family Medicine
DX: R07.89 Other chest pain (principal); R06.00 Dyspnea, unspecified
CPT/HCPCS: 36415; 71046; 80053; 82553; 83880; 84484; 93005; 93010

== ENCOUNTER 2022-08-19 13:40 | Emergency (ER) | payer MEDICARE, BC, OTHER ==
[2022-08-19] MEDS ORDERED: Doxycycline 100 MG CAP ONE (14:22)
[2022-08-19] MEDS ORDERED: Cephalexin 500 MG CAP ONE (14:22)
[2022-08-19 14:54] LABS: #Eosinphils 0.1 thou/uL (0.0-0.7); #Lymphocytes 1.1 thou/uL (1.20-3.40); #Monocytes 0.6 thou/uL (0.11-0.59); #Neutrophils 2.9 thou/uL (1.40-6.50); %Basophils 0.9 % (0.0-1.0); %Eosinophils 1.7 % (0.0-10.0); %Lymphocytes 23.9 % (21.0-51.0); %Monocytes 11.8 % (0.0-10.0); %Neutrophils 61.8 % (42.0-75.0); Hemoglobin 14.6 g/dL (14.0-18.0); Mean Corpuscular HGB CONC 32.1 g/dL (32.0-36.0); Mean Corpuscular Hemoglobin 28.6 pg (27.0-31.0); Mean Corpuscular Volume 89.1 fl (78.0-98.0); Mean Platelet Volume 7.3 fL (7.4-10.4); Platelet Count 123 10x3/uL (130-400); RBC Distribution Width 14.9 % (11.5-14.5); Red Blood Cell (RBC) Count 5.11 mill/uL (4.70-6.10); White Blood Cell (WBC) Count 4.6 10x3/uL (4.8-10.8)
[2022-08-19 15:03] LABS: Prothrombin Time 13.6 sec (12.0-14.7)
[2022-08-19 15:04] LABS: PTT 29.5 sec (22.9-36.1)
[2022-08-19 15:06] LABS: ALT (SGPT) 9 U/L (8-55); AST (SGOT) 14 U/L (5-34); Albumin 4.7 g/dL (3.4-4.8); Alkaline Phosphatase 111 U/L (40-110); Anion Gap 16 mmol/L (10-20); BUN (Urea Nitrogen) 26 mg/dL (8.4-25.7); Bilirubin, Total 1.2 mg/dL (0.2-1.2); Calc. Creatinine Clearance 0 mL/min (70-130); Calcium 9.6 mg/dL (7.8-10.44); Carbon Dioxide 23 mmol/L (23-31); Chloride 103 mmol/L (98-107); D-Dimer Test 0.72 *mcg/mL (0.27-0.43); Estimated GFR 42; Globulin 3.3 g/dL (2.4-3.5); Glucose 128 mg/dL (83-110); Potassium 4.5 mmol/L (3.5-5.1); Sodium 137 mmol/L (136-145)
== END 2022-08-19 15:45 | disposition home or self-care (01) ==
LOC: MADERS 13:40
DX: L03.115 Cellulitis of right lower limb (principal); I10 Essential (primary) hypertension; Z87.891 Personal history of nicotine dependence; Z79.899 Other long term (current) drug therapy
CPT/HCPCS: 36415; 80053; 83605; 85025; 85379; 85610; 85730; 86140; 87040

== ENCOUNTER 2022-12-05 12:46 | Emergency (ER) | payer MEDICARE, BC, OTHER | END 2022-12-05 13:30 | disposition home or self-care (01) | LOC: MADERS 12:46 | DX: S22.32XA Fracture of one rib, left side, initial encounter for closed fracture (principal); I10 Essential (primary) hypertension; Z87.891 Personal history of nicotine dependence; W17.89XA Other fall from one level to another, initial encounter ==

== ENCOUNTER 2022-12-16 15:52 | Outpatient (CLI) | payer MEDICARE, BC, OTHER | END 2022-12-16 15:53 | disposition home or self-care (01) | LOC: MADRAD 15:52 | PROVIDERS: ATTEND Family Medicine | DX: S22.31XA Fracture of one rib, right side, initial encounter for closed fracture (principal) ==

== ENCOUNTER 2023-02-27 12:23 | Emergency (ER) | payer MEDICARE, BC, OTHER ==
[2023-02-27] MEDS ORDERED: Boostrix 0.5 ML (Tdap) VIAL (>/=7 yrs of age) ONE (13:29)
== END 2023-02-27 15:06 | disposition home or self-care (01) ==
LOC: MADERS 12:23
DX: S39.011A Strain of muscle, fascia and tendon of abdomen, initial encounter (principal); S40.012A Contusion of left shoulder, initial encounter; S00.412A Abrasion of left ear, initial encounter; S60.511A Abrasion of right hand, initial encounter; I10 Essential (primary) hypertension; W01.190A Fall on same level from slipping, tripping and stumbling with subsequent striking against furniture, initial encounter; Z79.899 Other long term (current) drug therapy; Z87.891 Personal history of nicotine dependence
CPT/HCPCS: 70450; 72125; 90471; 90715

== ENCOUNTER 2023-06-18 07:45 | Emergency (ER) | payer MEDICARE, BC, OTHER ==
[2023-06-18] MEDS ORDERED: Pantoprazole 40 MG VIAL ONE (08:22)
[2023-06-18] MEDS ORDERED: Ondansetron PF 4 MG/2 ML Vial ONE (08:22)
[2023-06-18 08:31] LABS: Hematocrit 37.5 % (42.0-52.0); Hemoglobin 11.6 g/dL (14.0-18.0); Mean Corpuscular HGB CONC 30.9 g/dL (32.0-36.0); Mean Corpuscular Volume 90.7 fl (78.0-98.0); Mean Platelet Volume 6.4 fL (7.4-10.4); Platelet Count 100 10x3/uL (130-400); RBC Distribution Width 15.2 % (11.5-14.5); Red Blood Cell (RBC) Count 4.13 mill/uL (4.70-6.10); White Blood Cell (WBC) Count 2.8 10x3/uL (4.8-10.8)
[2023-06-18 08:33] LABS: ALT (SGPT) 10 U/L (8-55); AST (SGOT) 14 U/L (5-34); Albumin 4.3 g/dL (3.4-4.8); Alkaline Phosphatase 81 U/L (40-110); Anion Gap 17 mmol/L (10-20); BUN (Urea Nitrogen) 65 mg/dL (8.4-25.7); Bilirubin, Total 1.3 mg/dL (0.2-1.2); Calc. Creatinine Clearance 0 mL/min (70-130); Calcium 8.7 mg/dL (7.8-10.44); Carbon Dioxide 19 mmol/L (23-31); Chloride 108 mmol/L (98-107); Estimated GFR 35; Globulin 2.6 g/dL (2.4-3.5); Glucose 176 mg/dL (83-110); Potassium 4.6 mmol/L (3.5-5.1); Protein, Total 6.9 g/dL (5.8-8.1); Sodium 139 mmol/L (136-145)
[2023-06-18 08:36] LABS: Troponin I Less than 0.010 ng/mL (< 0.028)
[2023-06-18 08:40] LABS: Anisocytosis SLIGHT = 6-15 cells (100X) (0-5/hpf); Eosinophils 1 % (0-10); Lymphocytes 43 % (21-51); MDiff Complete? YES; Manual Diff?? YES; Monocytes 15 % (0-10); Neutrophil 39 % (42-75)
[2023-06-18 08:41] LABS: Platelet Adequacy Comment Appears Decreased
[2023-06-18] MEDS ORDERED: Iopamidol 370 76% 100 ML VIAL ONE (09:00)
[2023-06-18] MEDS ORDERED: Vancomycin HCl 500 MG VIAL ONE (09:42)
[2023-06-18] MEDS ORDERED: Sodium Chloride 0.9% 250 ML 250 ML ONE (09:42)
[2023-06-18] MEDS ORDERED: Sodium Chloride 0.9% 100 ML ONE (09:42)
[2023-06-18] MEDS ORDERED: Piperacillin/Tazobactam 3.375 GM VIAL ONE (09:42)
[2023-06-18 10:26] LABS: Bilirubin Negative (Negative); Blood, Urine Negative (Negative); Clarity Clear (Clear); Glucose, Urine (Dipstick) Negative (Negative); Ketone, Urine Negative (Negative); Leukocyte Negative (Negative); Nitrite Negative (Negative); Protein, Urine (Dipstick) Negative (Neg-Trace); Urobilinogen 0.2 mg/dL (Less than 2); pH, Urine 5.5 (5.0-9.0)
[2023-06-18 10:36] LABS: Bacteria/HPF Rare-Few HPF (None Seen); CAUTI Indications for Culture < 2yrs of age; RBC/HPF 0-3 HPF (0-3); Squamous Epithelial None Seen HPF (0-3); WBC/HPF None Seen HPF (0-3)
[2023-06-18 10:37] LABS: Urine Culture Reflex Yes Yes
== END 2023-06-18 14:40 | disposition short-term general hospital (02) ==
LOC: MADERS 07:45
DX: E86.0 Dehydration (principal); D61.818 Other pancytopenia; R65.10 Systemic inflammatory response syndrome (SIRS) of non-infectious origin without acute organ dysfunction; I10 Essential (primary) hypertension; Z79.899 Other long term (current) drug therapy; Z87.891 Personal history of nicotine dependence
CPT/HCPCS: 36415; 71260; 74177; 80053; 81001; 82274; 84484; 85025; 87040; 87086; 93005; 96361; 96365; 96367; 96375; C9113; J2405; J2543; J3370; J3490; J7050; Q9967

== ENCOUNTER 2023-07-04 16:00 | Emergency (ER) | payer MEDICARE, BC, OTHER | END 2023-07-04 18:22 | disposition home or self-care (01) | LOC: MADERS 16:00 | DX: S70.11XA Contusion of right thigh, initial encounter (principal); H11.31 Conjunctival hemorrhage, right eye; I10 Essential (primary) hypertension; Z87.891 Personal history of nicotine dependence; Z79.899 Other long term (current) drug therapy; W18.30XA Fall on same level, unspecified, initial encounter | CPT/HCPCS: 70450 ==

== ENCOUNTER 2023-11-16 04:23 | Emergency (ER) | payer MEDICARE, BC ==
[2023-11-16] MEDS ORDERED: HYDROcodone/Acetaminophen 5/325 mg Tablet ONE (05:11)
[2023-11-16 05:58] LABS: Bilirubin Negative (Negative); Blood, Urine Small (Negative); Clarity Clear (Clear); Glucose, Urine (Dipstick) Negative (Negative); Ketone, Urine Negative (Negative); Leukocyte Negative (Negative); Nitrite Negative (Negative); Protein, Urine (Dipstick) 100 mg/dL (Neg-Trace); pH, Urine 5.5 (5.0-9.0)
[2023-11-16 05:59] LABS: CAUTI Indications for Culture Dysuria,urgency,freq; Squamous Epithelial 0-3 HPF (0-3); WBC/HPF 0-3 HPF (0-3)
[2023-11-16 06:00] LABS: Bacteria/HPF 1+ HPF (None Seen); Urine Culture Reflex No No
== END 2023-11-16 06:40 | disposition home or self-care (01) ==
LOC: MADERS 04:23
DX: M54.50 Low back pain, unspecified (principal); I10 Essential (primary) hypertension; Z87.891 Personal history of nicotine dependence
CPT/HCPCS: 81001; 99283

== ENCOUNTER 2023-11-18 10:52 | Emergency (ER) | payer MEDICARE, BC ==
[2023-11-18 11:35] LABS: INR-International Normal Ratio 1.5; Prothrombin Time 17.9 sec (12.0-14.7)
[2023-11-18 11:36] LABS: PTT 36.1 sec (22.9-36.1)
[2023-11-18 11:44] LABS: ALT (SGPT) 14 U/L (8-55); AST (SGOT) 78 U/L (5-34); Albumin 4.1 g/dL (3.4-4.8); Alkaline Phosphatase 137 U/L (40-110); Anion Gap 18 mmol/L (10-20); BUN (Urea Nitrogen) 44 mg/dL (8.4-25.7); Bilirubin, Total 1.8 mg/dL (0.2-1.2); Calc. Creatinine Clearance 0 mL/min (70-130); Calcium 8.5 mg/dL (7.8-10.44); Carbon Dioxide 16 mmol/L (23-31); Chloride 98 mmol/L (98-107); Estimated GFR 22; Glucose 147 mg/dL (83-110); Potassium 4.1 mmol/L (3.5-5.1); Protein, Total 7.1 g/dL (5.8-8.1); Sodium 128 mmol/L (136-145)
[2023-11-18 11:57] LABS: Troponin I 0.374 ng/mL (< 0.028)
[2023-11-18 12:09] LABS: Hemoglobin 6.6 g/dL (14.0-18.0); Mean Corpuscular HGB CONC 31.5 g/dL (32.0-36.0); Mean Corpuscular Hemoglobin 26.4 pg (27.0-31.0); Mean Platelet Volume 11.8 fL (7.4-10.4); Platelet Count 17 10x3/uL (130-400); RBC Distribution Width 18.1 % (11.5-14.5)
[2023-11-18 12:10] LABS: MDiff Complete? YES; Manual Diff?? YES
[2023-11-18 12:14] LABS: Band 3 % (5-11); Lymphocytes 1 % (21-51); Neutrophil 33 % (42-75)
[2023-11-18 12:15] LABS: Blast 4 % (0-0); Eosinophils 1 % (0-10); Monocytes 2 % (0-10); Nucleated RBC (Manual Ct) 137 % (0)
[2023-11-18 12:16] LABS: Other Cell Types 56
[2023-11-18 12:17] LABS: Hypochromia MODERATE=16-30 cells (100X) (0-5/hpf); Polychromasia MARKED = >4 cells (100X) (0-2/hpf)
[2023-11-18 12:18] LABS: Anisocytosis SLIGHT = 6-15 cells (100X) (0-5/hpf)
[2023-11-18 12:20] LABS: Platelet Adequacy Comment Appears Decreased; White Blood Cell (WBC) Count 53.5 10x3/uL (4.8-10.8)
[2023-11-18] MEDS ORDERED: HYDROcodone/Acetaminophen 5/325 mg Tablet ONE (12:43)
[2023-11-18 13:37] LABS: Bilirubin Negative (Negative); Blood, Urine Small (Negative); Glucose, Urine (Dipstick) Negative (Negative); Ketone, Urine Negative (Negative); Leukocyte Negative (Negative); Nitrite Negative (Negative); Protein, Urine (Dipstick) 100 mg/dL (Neg-Trace); Specific Gravity, Urine 1.015 (1.005-1.030); pH, Urine 5.5 (5.0-9.0)
[2023-11-18 13:38] LABS: Clarity Hazy (Clear)
[2023-11-18 13:44] LABS: Bacteria/HPF Rare-Few HPF (None Seen); CAUTI Indications for Culture Immunosuppressed; Squamous Epithelial 0-3 HPF (0-3); WBC/HPF None Seen HPF (0-3)
[2023-11-18 13:45] LABS: Urine Culture Reflex No No
[2023-11-18 13:46] LABS: Urine Culture Reflex Yes Yes
[2023-11-18] MEDS ORDERED: Aspirin Chewable 81 MG TAB ONE (14:40)
[2023-11-18 14:51] LABS: Troponin I 0.382 ng/mL (< 0.028)
[2023-11-18 17:28] LABS: Critical Call Chem Troponin I NUR.RGK@1728; Troponin I 0.374 ng/mL (< 0.028)
== END 2023-11-18 17:30 | disposition short-term general hospital (02) ==
LOC: MADERS 10:52
DX: D46.9 Myelodysplastic syndrome, unspecified (principal); I21.4 Non-ST elevation (NSTEMI) myocardial infarction; R79.89 Other specified abnormal findings of blood chemistry; E87.1 Hypo-osmolality and hyponatremia; D69.6 Thrombocytopenia, unspecified; I12.9 Hypertensive chronic kidney disease with stage 1 through stage 4 chronic kidney disease, or unspecified chronic kidney disease; N18.9 Chronic kidney disease, unspecified; Z87.891 Personal history of nicotine dependence; Z79.899 Other long term (current) drug therapy
CPT/HCPCS: 36415; 36430; 71045; 80053; 81001; 83605; 83880; 84484; 85025; 85379; 85610; 85730; 86850; 86900; 86901; 87040; 87086; 93005; 94760; 96360; P9016